=== PATIENT | female | born 1960 | race Caucasian/White ===

== ENCOUNTER 2019-05-08 09:42 | Inpatient (IN) ==
[2019-05-08] MEDS ORDERED: ONDANSETRON 4 MG/2 ML VIAL IV STA (09:58)
[2019-05-08] MEDS ORDERED: PANTOPRAZOLE 40 MG VIAL IV STA (09:58)
[2019-05-08 10:32] LABS: Basophils # 0.1 10*3/uL (0.0-0.2); Basophils % 0.7 % (0.0-0.8); Eosinophils # 0.2 10*3/uL (0.0-0.87); Eosinophils % 3.1 % (0.00-10.9); Hematocrit 25.1 VOL% (35.7-47.0); Hemoglobin 7.1 GM/DL (12.0-16.0); Immature Granulocytes % 0.3 %; Immature Granulocytes Absolute 0.02 #; Lymphocytes # 1.2 10*3/uL (1.4-4.0); Lymphocytes % 16.9 % (21.3-54.2); Mean Corpuscular HGB Conc 28.3 GM/DL (32-36); Mean Corpuscular Volume 75.1 FL (87-102); Mean Platelet Volume 10.8 FL (9.6-12.0); Monocytes % 11.2 % (1.7-12.7); Neutrophils % 67.8 % (38.7-73.9); Platelet Count 222 T/CUMM (130-400); Red Blood Count 3.34 MC/CUMM (3.8-5.5); Red Cell Distribution Width 17.3 % (9.3-17.3); White Blood Count 6.8 T/CUMM (4-12)
[2019-05-08 10:41] LABS: INR 1.2; PT Patient Result 13.5 SECS (9.6-12.2); Partial Thromboplastin Time 31.3 SECS (20.8-36.0)
[2019-05-08 10:52] LABS: Elliptocytes Few; Hypochromasia 1+; Platelet Estimate Adequate
[2019-05-08 11:52] LABS: Albumin 3.4 G/DL (3.4-5.0); Bilirubin,Total 0.5 MG/DL (0.2-1.0); Calcium 7.8 MG/DL (8.5-10.1); Osmolality,Calculated 290.1 MOS/KG (273-304); Total Protein 6.1 G/DL (6.4-8.3)
[2019-05-08] MEDS ORDERED: ONDANSETRON 4 MG/2 ML VIAL IV PRN (13:12)
[2019-05-08] MEDS ORDERED: ACETAMINOPHEN 325 MG TABLET PO PRN (13:12)
[2019-05-08 13:58] LABS: CKMB % 1.5 %
[2019-05-08 13:59] LABS: Troponin I 0.05 NG/ML (0.00-0.045)
[2019-05-08] MEDS ORDERED: SODIUM CHLORIDE 0.9% 1,000 ML IV PRN (14:45)
[2019-05-08 15:18] LABS: CKMB % 1.2 %; Troponin I 0.045 NG/ML (0.00-0.045)
[2019-05-08] MEDS ORDERED: ALBUTEROL/IPRATROPIUM 3 ML NEB RESP TX PRN (16:04)
[2019-05-08] MEDS: GABAPENTIN 600 MG TABLET PO SCH ×2 (16:42→20:20)
[2019-05-08] MEDS: SODIUM CHLORIDE 0.9% 1,000 ML IV SCH (16:43)
[2019-05-08] MEDS: DOCUSATE SODIUM 100 MG CAPSULE PO SCH (20:20)
[2019-05-08] MEDS: ATORVASTATIN 40 MG TABLET PO SCH (20:20)
[2019-05-08] MEDS: QUEtiapine 100 MG TABLET PO SCH (20:20)
[2019-05-09 01:36] LABS: Hematocrit 24.6 VOL% (35.7-47.0); Hemoglobin 7.5 GM/DL (12.0-16.0)
[2019-05-09 01:56] LABS: Albumin 3.1 G/DL (3.4-5.0); Bilirubin,Direct 0.22 MG/DL (0.0-0.20); Bilirubin,Indirect 0.6 MG/DL (0.0-1.0); Bilirubin,Total 0.8 MG/DL (0.2-1.0); Calcium 7.8 MG/DL (8.5-10.1); Osmolality,Calculated 287.1 MOS/KG (273-304); Total Protein 5.6 G/DL (6.4-8.3)
[2019-05-09] MEDS ORDERED: SODIUM CHLORIDE 0.9% 1,000 ML IV PRN (02:17)
[2019-05-09] MEDS ORDERED: LACTATED RINGERS 1,000 ML IV SCH (08:00)
[2019-05-09] MEDS ORDERED: propofoL 200 MG/20 ML VIAL IV ONE (10:00)
[2019-05-09] MEDS ORDERED: LIDOCAINE 2% 5 ML VIAL ONE (10:00)
[2019-05-09] MEDS: DOCUSATE SODIUM 100 MG CAPSULE PO SCH ×2 (11:04→21:03)
[2019-05-09] MEDS: GABAPENTIN 600 MG TABLET PO SCH ×3 (11:04→21:04)
[2019-05-09] MEDS: PANTOPRAZOLE 40 MG VIAL IV SCH ×2 (11:04→11:55)
[2019-05-09] MEDS: QUEtiapine 100 MG TABLET PO SCH (21:04)
[2019-05-09] MEDS: ATORVASTATIN 40 MG TABLET PO SCH (21:04)
[2019-05-10 04:36] LABS: Basophils % 0.8 % (0.0-0.8); Eosinophils # 0.2 10*3/uL (0.0-0.87); Hematocrit 32.5 VOL% (35.7-47.0); Hemoglobin 9.8 GM/DL (12.0-16.0); Immature Granulocytes % 0.3 %; Immature Granulocytes Absolute 0.01 #; Lymphocytes # 1.4 10*3/uL (1.4-4.0); Lymphocytes % 37.4 % (21.3-54.2); Mean Corpuscular HGB Conc 30.2 GM/DL (32-36); Mean Corpuscular Volume 82.1 FL (87-102); Mean Platelet Volume 11.7 FL (9.6-12.0); Monocytes % 13.5 % (1.7-12.7); Platelet Count 194 T/CUMM (130-400); Red Blood Count 3.96 MC/CUMM (3.8-5.5); Red Cell Distribution Width 18.6 % (9.3-17.3); White Blood Count 3.8 T/CUMM (4-12)
[2019-05-10] MEDS: SODIUM CHLORIDE 0.9% 1,000 ML IV SCH ×4 (07:53→14:32)
[2019-05-10] MEDS: PANTOPRAZOLE 40 MG VIAL IV SCH (09:40)
[2019-05-10] MEDS: DOCUSATE SODIUM 100 MG CAPSULE PO SCH (09:41)
[2019-05-10] MEDS: GABAPENTIN 600 MG TABLET PO SCH ×2 (09:41→15:29)
[2019-05-10 16:41] VITALS: BP 106/64
== END 2019-05-10 16:30 | disposition home or self-care (01) | DRG 378 ==
LOC: N.ED 09:42 → N.EDINP 09:42 → SUPCPDRO 10:49 → N.4E 12:29
PROVIDERS: ADMIT Family Medicine; ATTEND Family Medicine

== ENCOUNTER 2019-10-08 06:15 | Inpatient (IN) ==
[2019-10-08] MEDS ORDERED: ASPIRIN 325 MG TABLET PO STA (06:28)
[2019-10-08] MEDS ORDERED: DILTIAZEM 50 MG/10 ML VIAL IV STA (06:28)
[2019-10-08] MEDS ORDERED: dilTIAZem Drip 125 MG/125 ML PREMIX IV SCH (06:30)
[2019-10-08 07:11] LABS: Basophils # 0.1 10*3/uL (0.0-0.2); Basophils % 1.1 % (0.0-0.8); Eosinophils # 0.1 10*3/uL (0.0-0.87); Eosinophils % 1.9 % (0.00-10.9); Hematocrit 32.7 VOL% (35.7-47.0); Hemoglobin 9.7 GM/DL (12.0-16.0); Immature Granulocytes % 0.4 %; Immature Granulocytes Absolute 0.02 #; Lymphocytes # 1.7 10*3/uL (1.4-4.0); Mean Corpuscular HGB Conc 29.7 GM/DL (32-36); Mean Corpuscular Volume 88.4 FL (87-102); Mean Platelet Volume 11.3 FL (9.6-12.0); Monocytes % 12.6 % (1.7-12.7); Platelet Count 235 T/CUMM (130-400); Red Cell Distribution Width 14.9 % (9.3-17.3); White Blood Count 5.3 T/CUMM (4-12)
[2019-10-08 07:22] LABS: INR 1.1; PT Patient Result 11.6 SECS (9.8-11.9); Partial Thromboplastin Time 28.9 SECS (23.9-33.8)
[2019-10-08 07:31] LABS: Albumin 3.3 G/DL (3.4-5.0); Bilirubin,Total 0.4 MG/DL (0.2-1.0); Calcium 8.1 MG/DL (8.5-10.1); Osmolality,Calculated 285.8 MOS/KG (273-304); Total Protein 6.4 G/DL (6.4-8.3)
[2019-10-08] MEDS ORDERED: ONDANSETRON 4 MG/2 ML VIAL IV PRN (07:41)
[2019-10-08] MEDS ORDERED: CALCIUM CARBONATE CHEW 500 MG TABLET PO PRN (07:41)
[2019-10-08] MEDS ORDERED: diphenhydrAMINE CAP 25 MG CAPSULE PO PRN (07:41)
[2019-10-08] MEDS ORDERED: guaiFENesin/DM ER 600-30 MG TABLET PO PRN (07:41)
[2019-10-08] MEDS ORDERED: DOCUSATE SODIUM 100 MG CAPSULE PO PRN (07:41)
[2019-10-08] MEDS ORDERED: PROMETHAZINE 25 MG TABLET PO PRN (07:41)
[2019-10-08] MEDS ORDERED: hydrALAZINE 20 MG/1 ML VIAL IV PRN (07:41)
[2019-10-08] MEDS ORDERED: MAGNESIUM SULF RIDER 4 GM in PREMIX 1 EACH IV PRN (07:41)
[2019-10-08] MEDS ORDERED: ZALEPLON 5 MG CAPSULE PO PRN (07:41)
[2019-10-08] MEDS ORDERED: MAGNESIUM SULF RIDER 2 GM in PREMIX 1 EACH IV PRN (07:41)
[2019-10-08] MEDS ORDERED: ACETAMINOPHEN 325 MG TABLET PO PRN (07:41)
[2019-10-08] MEDS ORDERED: NICOTINE 21 MG/24 HR PATCH TRANSDERM PRN (07:41)
[2019-10-08] MEDS ORDERED: ALUMINUM/MAGNES/SIMETH MAX STR 30 ML UDCUP PO PRN (07:41)
[2019-10-08] MEDS ORDERED: POTASSIUM CHLORIDE 20 MEQ TABLET PO PRN (07:41)
[2019-10-08] MEDS ORDERED: DEXTROSE 50% 25 GM/50 ML VIAL IV STA (07:45)
[2019-10-08] MEDS ORDERED: DICLOFENAC 1% GEL 100 GM TUBE TOP PRN (07:52)
[2019-10-08] MEDS ORDERED: DEXTROSE 50% 25 GM/50 ML SYRINGE IV ONE (07:56)
[2019-10-08] MEDS ORDERED: ENOXAPARIN 100 MG/ML SYRINGE SUBCUT SCH (08:00)
[2019-10-08] MEDS: tiZANidine 4 MG TABLET PO SCH ×3 (09:07→20:38)
[2019-10-08] MEDS: PANTOPRAZOLE 40 MG TABLET PO SCH (09:07)
[2019-10-08] MEDS: GABAPENTIN 600 MG TABLET PO SCH ×2 (09:07→20:37)
[2019-10-08] MEDS ORDERED: ENOXAPARIN 80 MG/0.8 ML SYRINGE SUBCUT SCH (10:00)
[2019-10-08] MEDS ORDERED: ENOXAPARIN 80 MG/0.8 ML SYRINGE SUBCUT ONE (10:13)
[2019-10-08] MEDS ORDERED: FUROSEMIDE 20 MG/2 ML VIAL IV ONE (10:28)
[2019-10-08] MEDS: ASCORBIC ACID 500 MG TABLET PO SCH ×2 (11:42→20:36)
[2019-10-08] MEDS: DILTIAZEM 60 MG TABLET PO SCH ×4 (11:42→20:37)
[2019-10-08] MEDS ORDERED: METOPROLOL TARTRATE 25 MG TABLET PO ONE (13:47)
[2019-10-08] MEDS ORDERED: SODIUM CHLORIDE 0.45% 500 ML IV SCH (16:30)
[2019-10-08] MEDS ORDERED: RIVAROXABAN 20 MG TABLET PO SCH (17:00)
[2019-10-08] MEDS: ATORVASTATIN 40 MG TABLET PO SCH (20:36)
[2019-10-08] MEDS: QUEtiapine 100 MG TABLET PO SCH (20:38)
[2019-10-08] MEDS ORDERED: METOPROLOL TARTRATE 25 MG TABLET PO SCH ×2 (21:00)
[2019-10-09 05:50] LABS: Basophils # 0.1 10*3/uL (0.0-0.2); Basophils % 1.1 % (0.0-0.8); Eosinophils # 0.1 10*3/uL (0.0-0.87); Eosinophils % 2.3 % (0.00-10.9); Hematocrit 38.2 VOL% (35.7-47.0); Hemoglobin 11.6 GM/DL (12.0-16.0); Immature Granulocytes % 0.2 %; Immature Granulocytes Absolute 0.01 #; Lymphocytes # 1.7 10*3/uL (1.4-4.0); Mean Corpuscular HGB Conc 30.4 GM/DL (32-36); Mean Corpuscular Volume 87.2 FL (87-102); Mean Platelet Volume 11.5 FL (9.6-12.0); Monocytes % 8.9 % (1.7-12.7); Neutrophils % 48.5 % (38.7-73.9); Platelet Count 215 T/CUMM (130-400); Red Blood Count 4.38 MC/CUMM (3.8-5.5); Red Cell Distribution Width 14.9 % (9.3-17.3); White Blood Count 4.4 T/CUMM (4-12)
[2019-10-09 06:31] LABS: Apearance,Urine CLEAR (Clear); Bilirubin,Urine Negative (Negative); Blood, Urine Negative (Negative); Glucose,Urine (UA) Negative (Negative); Ketones,Urine Negative (Negative); Mucus,Urine Occasional /LPF (Occasional); Nitrite,Urine Negative (Negative); Protein,Urine Negative; RBC,Urine 1 /HPF (0-4); Urine Color Straw (Yellow); Urine Specific Gravity 1.008 (1.001-1.035); Urine Urobilinogen < 2.0 EU/DL (0.2-1.0); WBC,Urine 1 /HPF (0-6)
[2019-10-09 06:49] LABS: Calcium 8.6 MG/DL (8.5-10.1); Osmolality,Calculated 282.3 MOS/KG (273-304)
[2019-10-09] MEDS: PANTOPRAZOLE 40 MG TABLET PO SCH (09:18)
[2019-10-09] MEDS: GABAPENTIN 600 MG TABLET PO SCH ×2 (09:18→20:54)
[2019-10-09] MEDS: ASCORBIC ACID 500 MG TABLET PO SCH ×2 (09:18→20:54)
[2019-10-09] MEDS: tiZANidine 4 MG TABLET PO SCH ×3 (09:18→20:54)
[2019-10-09] MEDS: DILTIAZEM 60 MG TABLET PO SCH ×5 (09:23→20:54)
[2019-10-09] MEDS ORDERED: POTASSIUM CHLORIDE RIDER 10 MEQ in PREMIX 1 EACH IV PRN (12:19)
[2019-10-09] MEDS ORDERED: MAGNESIUM SULF RIDER 2 GM in PREMIX 1 EACH IV PRN (12:19)
[2019-10-09] MEDS: QUEtiapine 100 MG TABLET PO SCH (20:54)
[2019-10-09] MEDS: ATORVASTATIN 40 MG TABLET PO SCH (20:54)
[2019-10-09] MEDS ORDERED: DILTIAZEM CD 180 MG CAPSULE PO SCH (21:00)
[2019-10-10 07:50] LABS: Basophils # 0.1 10*3/uL (0.0-0.2); Basophils % 1.5 % (0.0-0.8); Eosinophils # 0.1 10*3/uL (0.0-0.87); Eosinophils % 2.5 % (0.00-10.9); Hematocrit 40.9 VOL% (35.7-47.0); Hemoglobin 12.3 GM/DL (12.0-16.0); Immature Granulocytes % 0.4 %; Immature Granulocytes Absolute 0.02 #; Lymphocytes # 1.7 10*3/uL (1.4-4.0); Lymphocytes % 31.9 % (21.3-54.2); Mean Corpuscular HGB Conc 30.1 GM/DL (32-36); Mean Corpuscular Volume 86.5 FL (87-102); Monocytes % 9.8 % (1.7-12.7); Neutrophils % 53.9 % (38.7-73.9); Platelet Count 275 T/CUMM (130-400); Red Blood Count 4.73 MC/CUMM (3.8-5.5); Red Cell Distribution Width 14.9 % (9.3-17.3); White Blood Count 5.3 T/CUMM (4-12)
[2019-10-10 08:08] LABS: Calcium 8.7 MG/DL (8.5-10.1); Osmolality,Calculated 281.3 MOS/KG (273-304)
[2019-10-10] MEDS ORDERED: DIGOXIN 0.5 MG/2 ML AMP IV ONE (08:26)
[2019-10-10] MEDS: DILTIAZEM 60 MG TABLET PO SCH ×4 (09:07→21:38)
[2019-10-10] MEDS ORDERED: HEPARIN/NACL 0.9% 2 UNITS/ML 1,500 ML IV ONE (10:21)
[2019-10-10] MEDS ORDERED: LIDOCAINE 1% 20 ML VIAL ONE (10:21)
[2019-10-10] MEDS ORDERED: MIDAZOLAM 2 MG/2 ML VIAL ONE (12:36)
[2019-10-10] MEDS ORDERED: ASPIRIN CHEW 81 MG TABLET PO ONE (12:37)
[2019-10-10] MEDS ORDERED: fentaNYL 100 MCG/2 ML VIAL ONE (12:37)
[2019-10-10] MEDS ORDERED: SODIUM CHLORIDE 0.9% 1,000 ML IV SCH (13:00)
[2019-10-10] MEDS ORDERED: ETOMIDATE 40 MG/20 ML VIAL IV ONE (13:25)
[2019-10-10] MEDS ORDERED: propofoL 200 MG/20 ML VIAL IV ONE (13:25)
[2019-10-10] MEDS: GABAPENTIN 600 MG TABLET PO SCH ×2 (14:53→21:39)
[2019-10-10] MEDS: ASCORBIC ACID 500 MG TABLET PO SCH ×2 (14:53→21:38)
[2019-10-10] MEDS: PANTOPRAZOLE 40 MG TABLET PO SCH (14:53)
[2019-10-10] MEDS: tiZANidine 4 MG TABLET PO SCH ×3 (14:53→21:39)
[2019-10-10] MEDS: ATORVASTATIN 40 MG TABLET PO SCH (21:38)
[2019-10-10] MEDS: QUEtiapine 100 MG TABLET PO SCH (21:39)
[2019-10-11 06:10] LABS: Basophils # 0.1 10*3/uL (0.0-0.2); Basophils % 0.9 % (0.0-0.8); Eosinophils # 0.1 10*3/uL (0.0-0.87); Eosinophils % 2.2 % (0.00-10.9); Hemoglobin 10.2 GM/DL (12.0-16.0); Immature Granulocytes % 0.3 %; Immature Granulocytes Absolute 0.02 #; Lymphocytes # 1.6 10*3/uL (1.4-4.0); Lymphocytes % 27.1 % (21.3-54.2); Mean Corpuscular Volume 87.6 FL (87-102); Mean Platelet Volume 11.4 FL (9.6-12.0); Monocytes % 7.5 % (1.7-12.7); Platelet Count 239 T/CUMM (130-400); Red Blood Count 3.88 MC/CUMM (3.8-5.5); Red Cell Distribution Width 15.1 % (9.3-17.3); White Blood Count 5.8 T/CUMM (4-12)
[2019-10-11 06:25] LABS: Calcium 8.3 MG/DL (8.5-10.1); Osmolality,Calculated 283.3 MOS/KG (273-304)
[2019-10-11] MEDS: ASCORBIC ACID 500 MG TABLET PO SCH (09:19)
[2019-10-11] MEDS: tiZANidine 4 MG TABLET PO SCH (09:19)
[2019-10-11] MEDS: DILTIAZEM 60 MG TABLET PO SCH (09:19)
[2019-10-11] MEDS: GABAPENTIN 600 MG TABLET PO SCH (09:19)
[2019-10-11] MEDS: PANTOPRAZOLE 40 MG TABLET PO SCH (09:19)
[2019-10-11] MEDS ORDERED: AMIODARONE 200 MG TABLET PO SCH (11:30)
[2019-10-11 12:23] VITALS: BP 95/54
[2019-10-11] MEDS ORDERED: RIVAROXABAN 20 MG TABLET PO SCH (17:00)
[2019-10-11] MEDS ORDERED: carvediloL 12.5 MG TABLET PO SCH (21:00)
== END 2019-10-11 14:05 | disposition home or self-care (01) | DRG 287 ==
LOC: N.EDINP 06:15 → N.ED 06:15 → N.TELEN 10:29
PROVIDERS: ADMIT Internal Medicine Cardiovascular Disease; ATTEND Internal Medicine Cardiovascular Disease
PROC: CLCCHCL (ICD-10-PCS; 2019-10-10 11:45)

== ENCOUNTER 2020-04-08 15:37 | Inpatient (IN) ==
[2020-04-08] MEDS ORDERED: DILTIAZEM 50 MG/10 ML VIAL IV STA (17:24)
[2020-04-08] MEDS ORDERED: FUROSEMIDE 100 MG/10 ML VIAL IV STA (17:24)
[2020-04-08 17:32] LABS: Basophils # 0.1 10*3/uL (0.0-0.2); Basophils % 0.9 % (0.0-0.8); Eosinophils # 0.1 10*3/uL (0.0-0.87); Eosinophils % 1.9 % (0.00-10.9); Hematocrit 30.8 VOL% (35.7-47.0); Hemoglobin 8.5 GM/DL (12.0-16.0); Immature Granulocytes % 0.5 %; Immature Granulocytes Absolute 0.03 #; Lymphocytes # 1.3 10*3/uL (1.4-4.0); Lymphocytes % 20.3 % (21.3-54.2); Mean Corpuscular HGB Conc 27.6 GM/DL (32-36); Mean Corpuscular Volume 82.1 FL (87-102); Mean Platelet Volume 10.7 FL (9.6-12.0); Monocytes % 8.7 % (1.7-12.7); Neutrophils % 67.7 % (38.7-73.9); Platelet Count 357 T/CUMM (130-400); Red Blood Count 3.75 MC/CUMM (3.8-5.5); Red Cell Distribution Width 18.4 % (9.3-17.3); White Blood Count 6.3 T/CUMM (4-12)
[2020-04-08 17:42] LABS: INR 1.3; PT Patient Result 13.5 SECS (9.8-11.9)
[2020-04-08 17:43] LABS: Albumin 2.9 G/DL (3.4-5.0); Bilirubin,Total 0.5 MG/DL (0.2-1.0); Calcium 7.8 MG/DL (8.5-10.1); Osmolality,Calculated 285.3 MOS/KG (273-304); Potassium 4.4 MMOL/L (3.5-5.1); Total Protein 6.3 G/DL (6.4-8.3)
[2020-04-08 17:53] LABS: Anisocytosis 1+; Elliptocytes Few; Hypochromasia Slight; Polychromasia Few; Schistocytes Few
[2020-04-08 17:54] LABS: Platelet Estimate Adequate
[2020-04-08] MEDS ORDERED: dilTIAZem INJ 125 MG in SODIUM CHLORIDE 0.9% 125 MG/100 ML BAG IV SCH (18:30)
[2020-04-09] MEDS ORDERED: MORPHINE 4 MG/1 ML VIAL IV PRN (08:11)
[2020-04-09] MEDS ORDERED: ACETAMINOPHEN 325 MG TABLET PO PRN (08:11)
[2020-04-09] MEDS ORDERED: ONDANSETRON 4 MG/2 ML VIAL IV PRN (08:11)
[2020-04-09] MEDS ORDERED: ALBUTEROL/IPRATROPIUM 3 ML NEB RESP TX PRN (08:11)
[2020-04-09 08:58] LABS: Troponin I 0.021 NG/ML (0.00-0.045)
[2020-04-09] MEDS ORDERED: INFLUENZA VIRUS VACCINE 0.5 ML SYRINGE IM ONE (09:00)
[2020-04-09] MEDS: FUROSEMIDE 40 MG/4 ML VIAL IV SCH ×2 (09:34→17:07)
[2020-04-09] MEDS: SODIUM CHLORIDE 0.9% 1,000 ML IV SCH ×2 (09:34→09:37)
[2020-04-09] MEDS: DOCUSATE SODIUM 100 MG CAPSULE PO SCH ×2 (09:35→20:43)
[2020-04-09] MEDS: PANTOPRAZOLE 40 MG TABLET PO SCH (09:35)
[2020-04-09] MEDS ORDERED: AMIODARONE INJ 150 MG in DEXTROSE 5% 100 ML IV ONE (10:19)
[2020-04-09] MEDS ORDERED: ALBUTEROL 2.5 MG/3 ML NEB RESP TX PRN (10:20)
[2020-04-09] MEDS ORDERED: tiZANidine 4 MG TABLET PO PRN (10:20)
[2020-04-09] MEDS ORDERED: AMIODARONE INJ 450 MG in DEXTROSE 5% 241 ML IV SCH ×2 (10:30→16:30)
[2020-04-09] MEDS: RIVAROXABAN 20 MG TABLET PO SCH (17:06)
[2020-04-09] MEDS: cefTRIAXone 1,000 MG in SYRINGE 1 EACH IV SCH (17:07)
[2020-04-09] MEDS: ASCORBIC ACID 500 MG TABLET PO SCH (20:44)
[2020-04-09] MEDS: carvediloL 12.5 MG TABLET PO SCH (20:44)
[2020-04-09] MEDS ORDERED: QUEtiapine 100 MG TABLET PO SCH (21:00)
[2020-04-09] MEDS ORDERED: ATORVASTATIN 40 MG TABLET PO SCH (21:00)
[2020-04-10 05:59] LABS: Calcium 8.2 MG/DL (8.5-10.1); Osmolality,Calculated 277.7 MOS/KG (273-304); Potassium 4.3 MMOL/L (3.5-5.1)
[2020-04-10 06:26] LABS: Albumin 2.6 G/DL (3.4-5.0); Calcium 8.4 MG/DL (8.5-10.1); Osmolality,Calculated 279.5 MOS/KG (273-304); Potassium 4.3 MMOL/L (3.5-5.1); Risk Ratio 2.38; Total Protein 6.5 G/DL (6.4-8.3); VLDL CHOLESTEROL 9.6 MG/DL
[2020-04-10 07:12] LABS: Basophils # 0.1 10*3/uL (0.0-0.2); Basophils % 0.8 % (0.0-0.8); Eosinophils # 0.1 10*3/uL (0.0-0.87); Eosinophils % 2.3 % (0.00-10.9); Hematocrit 31.9 VOL% (35.7-47.0); Immature Granulocytes % 0.5 %; Immature Granulocytes Absolute 0.03 #; Lymphocytes # 1.2 10*3/uL (1.4-4.0); Lymphocytes % 19.6 % (21.3-54.2); Mean Corpuscular HGB Conc 28.2 GM/DL (32-36); Mean Corpuscular Volume 80.4 FL (87-102); Mean Platelet Volume 10.5 FL (9.6-12.0); Monocytes % 10.8 % (1.7-12.7); Platelet Count 337 T/CUMM (130-400); Red Blood Count 3.97 MC/CUMM (3.8-5.5); Red Cell Distribution Width 18.3 % (9.3-17.3); White Blood Count 6.2 T/CUMM (4-12)
[2020-04-10 07:19] LABS: Basophils # 0.1 10*3/uL (0.0-0.2); Basophils % 1.4 % (0.0-0.8); Eosinophils # 0.1 10*3/uL (0.0-0.87); Eosinophils % 2.2 % (0.00-10.9); Hematocrit 32.1 VOL% (35.7-47.0); Hemoglobin 9.1 GM/DL (12.0-16.0); Immature Granulocytes % 0.5 %; Immature Granulocytes Absolute 0.03 #; Lymphocytes # 1.4 10*3/uL (1.4-4.0); Mean Corpuscular HGB Conc 28.3 GM/DL (32-36); Mean Corpuscular Volume 80.3 FL (87-102); Mean Platelet Volume 10.9 FL (9.6-12.0); Monocytes % 10.7 % (1.7-12.7); Neutrophils % 61.2 % (38.7-73.9); Platelet Count 329 T/CUMM (130-400); Red Cell Distribution Width 18.2 % (9.3-17.3); White Blood Count 5.8 T/CUMM (4-12)
[2020-04-10 07:26] LABS: Anisocytosis 2+; Platelet Estimate Normal
[2020-04-10 07:27] LABS: Ovalocytes 1+; Poikilocytosis 1+; Polychromasia Slight; Target Cells Few
[2020-04-10] MEDS ORDERED: CETIRIZINE 10 MG TABLET PO SCH (09:00)
[2020-04-10] MEDS ORDERED: propofoL 200 MG/20 ML VIAL IV ONE (12:09)
[2020-04-10] MEDS ORDERED: LIDOCAINE 2% 5 ML VIAL ONE (12:09)
[2020-04-10] MEDS ORDERED: AMIODARONE 200 MG TABLET PO SCH (12:46)
[2020-04-10] MEDS: DOCUSATE SODIUM 100 MG CAPSULE PO SCH (14:07)
[2020-04-10] MEDS: PANTOPRAZOLE 40 MG TABLET PO SCH (14:08)
[2020-04-10] MEDS: ASCORBIC ACID 500 MG TABLET PO SCH (14:08)
[2020-04-10] MEDS: carvediloL 12.5 MG TABLET PO SCH (14:08)
[2020-04-10] MEDS: FUROSEMIDE 40 MG/4 ML VIAL IV SCH ×3 (14:08→15:59)
[2020-04-10 17:31] VITALS: BP 97/60
[2020-04-10] MEDS: cefTRIAXone 1,000 MG in SYRINGE 1 EACH IV SCH (17:31)
[2020-04-10] MEDS: RIVAROXABAN 20 MG TABLET PO SCH (17:35)
== END 2020-04-10 18:00 | disposition home or self-care (01) | DRG 291 ==
LOC: N.ED 15:37 → N.EDINP 18:44 → N.TELES 20:33
PROVIDERS: ADMIT Family Medicine; ATTEND Family Medicine

== ENCOUNTER 2020-07-02 14:46 | Observation (INO) ==
[2020-07-02] MEDS ORDERED: ONDANSETRON 4 MG/2 ML VIAL IV PRN (16:43)
[2020-07-02] MEDS ORDERED: MAGNESIUM SULF RIDER 4 GM in PREMIX 1 EACH IV PRN (16:43)
[2020-07-02] MEDS ORDERED: ACETAMINOPHEN 325 MG TABLET PO PRN (16:43)
[2020-07-02] MEDS ORDERED: MAGNESIUM SULF RIDER 2 GM in PREMIX 1 EACH IV PRN (16:43)
[2020-07-02 18:07] LABS: Basophils # 0.1 10*3/uL (0.0-0.2); Basophils % 0.8 % (0.0-0.8); Eosinophils # 0.1 10*3/uL (0.0-0.87); Eosinophils % 1.2 % (0.00-10.9); Hemoglobin 7.8 GM/DL (12.0-16.0); Immature Granulocytes % 0.6 %; Immature Granulocytes Absolute 0.04 #; Lymphocytes # 1.3 10*3/uL (1.4-4.0); Mean Corpuscular HGB Conc 26.4 GM/DL (32-36); Mean Corpuscular Volume 81.3 FL (87-102); Mean Platelet Volume 10.1 FL (9.6-12.0); Monocytes % 7.2 % (1.7-12.7); Neutrophils % 72.2 % (38.7-73.9); Platelet Count 465 T/CUMM (130-400); Red Blood Count 3.64 MC/CUMM (3.8-5.5); Red Cell Distribution Width 18.6 % (9.3-17.3); White Blood Count 7.2 T/CUMM (4-12)
[2020-07-02 18:08] LABS: Hematocrit 29.6 VOL% (35.7-47.0)
[2020-07-02] MEDS ORDERED: ALBUTEROL 2.5 MG/3 ML NEB RESP TX PRN (19:00)
[2020-07-02] MEDS ORDERED: SODIUM CHLORIDE 0.9% 1,000 ML IV PRN (19:05)
[2020-07-02] MEDS ORDERED: QUEtiapine 100 MG TABLET PO SCH (21:00)
[2020-07-02] MEDS ORDERED: ATORVASTATIN 40 MG TABLET PO SCH (21:00)
[2020-07-02] MEDS: FUROSEMIDE 40 MG/4 ML VIAL IV SCH (21:33)
[2020-07-02] MEDS: DOCUSATE SODIUM 100 MG CAPSULE PO SCH (21:33)
[2020-07-02] MEDS: carvediloL 12.5 MG TABLET PO SCH (21:33)
[2020-07-02] MEDS: ASCORBIC ACID 500 MG TABLET PO SCH (21:33)
[2020-07-02] MEDS: GABAPENTIN 600 MG TABLET PO SCH (21:34)
[2020-07-03 05:17] LABS: Bacteria,Urine Moderate /HPF (Few); Bilirubin,Urine Negative (Negative); Blood, Urine Negative (Negative); Glucose,Urine (UA) Negative (Negative); Ketones,Urine Negative (Negative); Nitrite,Urine Negative (Negative); Protein,Urine Negative; RBC,Urine 2 /HPF (0-4); Squamous Epithelial Cell,Urine Few /HPF (0-10); Urine Appearance Slightly Hazy (Clear); Urine Color Straw (Yellow); Urine Specific Gravity 1.008 (1.001-1.035); Urine Urobilinogen < 2.0 EU/DL (0.2-1.0); WBC,Urine 34 /HPF (0-6)
[2020-07-03 08:21] LABS: Basophils # 0.1 10*3/uL (0.0-0.2); Basophils % 0.8 % (0.0-0.8); Eosinophils # 0.1 10*3/uL (0.0-0.87); Eosinophils % 1.4 % (0.00-10.9); Hematocrit 34.9 VOL% (35.7-47.0); Hemoglobin 9.7 GM/DL (12.0-16.0); Immature Granulocytes % 0.5 %; Immature Granulocytes Absolute 0.03 #; Lymphocytes # 1.4 10*3/uL (1.4-4.0); Lymphocytes % 23.3 % (21.3-54.2); Mean Corpuscular HGB Conc 27.8 GM/DL (32-36); Mean Corpuscular Volume 79.9 FL (87-102); Mean Platelet Volume 10.2 FL (9.6-12.0); Monocytes % 7.8 % (1.7-12.7); Neutrophils % 66.2 % (38.7-73.9); Platelet Count 433 T/CUMM (130-400); Red Blood Count 4.37 MC/CUMM (3.8-5.5); Red Cell Distribution Width 18.6 % (9.3-17.3); White Blood Count 5.9 T/CUMM (4-12)
[2020-07-03 08:42] LABS: Hypochromasia 1+; Microcytosis 1+; Ovalocytes Slight
[2020-07-03 08:50] LABS: Albumin 2.8 G/DL (3.4-5.0); Bilirubin,Total 1.3 MG/DL (0.2-1.0); Calcium 8.3 MG/DL (8.5-10.1); Osmolality,Calculated 282.3 MOS/KG (273-304); Potassium 3.7 MMOL/L (3.5-5.1); Total Protein 6.4 G/DL (6.4-8.2)
[2020-07-03] MEDS: FUROSEMIDE 40 MG/4 ML VIAL IV SCH (08:58)
[2020-07-03] MEDS: DOCUSATE SODIUM 100 MG CAPSULE PO SCH (08:59)
[2020-07-03] MEDS: carvediloL 12.5 MG TABLET PO SCH (09:00)
[2020-07-03] MEDS: GABAPENTIN 600 MG TABLET PO SCH (09:00)
[2020-07-03] MEDS ORDERED: PANTOPRAZOLE 40 MG TABLET PO SCH (09:00)
[2020-07-03] MEDS: ASCORBIC ACID 500 MG TABLET PO SCH (09:00)
[2020-07-03 11:43] VITALS: BP 116/59
[2020-07-03] MEDS ORDERED: carvediloL 6.25 MG TABLET PO SCH (21:00)
== END 2020-07-03 17:09 | disposition home or self-care (01) ==
LOC: N.5E
PROVIDERS: ADMIT Family Medicine; ATTEND Family Medicine

== ENCOUNTER 2021-04-26 08:07 | Inpatient (IN) ==
[2021-04-26 11:45] LABS: PT Patient Result 11.5 SECS (10.5-12.0); Partial Thromboplastin Time 20.3 SECS (23.8-32.1)
[2021-04-26 12:02] LABS: Albumin 3.7 G/DL (3.4-5.0); Bilirubin,Total 0.6 MG/DL (0.20-1.00); Calcium 9.1 MG/DL (8.5-10.1); Osmolality,Calculated 280.1 MOS/KG (273-304); Potassium 3.6 MMOL/L (3.5-5.1); Total Protein 7.2 G/DL (6.4-8.2)
[2021-04-26 13:27] LABS: Basophils # 0.1 10*3/uL (0.0-0.2); Basophils % 0.8 % (0.0-0.8); Eosinophils # 0.2 10*3/uL (0.0-0.87); Eosinophils % 2.4 % (0.00-10.9); Hematocrit 26.2 VOL% (35.7-47.0); Hemoglobin 8.1 GM/DL (12.0-16.0); Immature Granulocytes % 0.5 %; Immature Granulocytes Absolute 0.03 #; Lymphocytes # 1.4 10*3/uL (1.4-4.0); Lymphocytes % 21.5 % (21.3-54.2); Mean Corpuscular HGB Conc 30.9 GM/DL (32-36); Mean Corpuscular Volume 83.7 FL (87-102); Mean Platelet Volume 10.4 FL (9.6-12.0); Neutrophils % 64.8 % (38.7-73.9); Platelet Count 257 T/CUMM (130-400); Red Blood Count 3.13 MC/CUMM (3.8-5.5); Red Cell Distribution Width 15.9 % (9.3-17.3); White Blood Count 6.3 T/CUMM (4-12)
[2021-04-26] MEDS ORDERED: SODIUM CHLORIDE 0.9% 1,000 ML IV STA (13:50)
[2021-04-26] MEDS ORDERED: ONDANSETRON 4 MG/2 ML VIAL IV PRN (19:03)
[2021-04-26] MEDS ORDERED: ACETAMINOPHEN 325 MG TABLET PO PRN (19:03)
[2021-04-26] MEDS: SODIUM CHLORIDE 0.9% 1,000 ML IV SCH (19:14)
[2021-04-26 19:46] LABS: Hematocrit 20.6 VOL% (35.7-47.0)
[2021-04-26 19:50] LABS: Hemoglobin 6.2 GM/DL (12.0-16.0)
[2021-04-26] MEDS ORDERED: SODIUM CHLORIDE 0.9% 1,000 ML IV PRN (19:58)
[2021-04-26] MEDS: carvediloL 12.5 MG TABLET PO SCH (21:06)
[2021-04-26] MEDS: QUEtiapine 100 MG TABLET PO SCH (21:20)
[2021-04-26] MEDS: DOCUSATE SODIUM 100 MG CAPSULE PO SCH (21:20)
[2021-04-26] MEDS: ATORVASTATIN 40 MG TABLET PO SCH (23:51)
[2021-04-27 05:00] LABS: Basophils % 0.7 % (0.0-0.8); Eosinophils # 0.2 10*3/uL (0.0-0.87); Eosinophils % 2.8 % (0.00-10.9); Hemoglobin 9.3 GM/DL (12.0-16.0); Immature Granulocytes % 0.2 %; Immature Granulocytes Absolute 0.01 #; Lymphocytes # 1.8 10*3/uL (1.4-4.0); Lymphocytes % 30.9 % (21.3-54.2); Mean Corpuscular Volume 85.5 FL (87-102); Mean Platelet Volume 10.6 FL (9.6-12.0); Monocytes % 9.3 % (1.7-12.7); Neutrophils % 56.1 % (38.7-73.9); Platelet Count 242 T/CUMM (130-400); Red Blood Count 3.51 MC/CUMM (3.8-5.5); Red Cell Distribution Width 15.2 % (9.3-17.3); White Blood Count 5.8 T/CUMM (4-12)
[2021-04-27 05:23] LABS: Alanine Aminotransferase 18 U/L (13-56); Albumin 2.9 G/DL (3.4-5.0); Alkaline Phosphatase 76 U/L (45-117); Aspartate Amino Transferase 22 U/L (0-37); Bilirubin,Total < 0.39 MG/DL (0.20-1.00); Blood Urea Nitrogen 41 MG/DL (7-18); Calcium 7.7 MG/DL (8.5-10.1); Carbon Dioxide 23 MMOL/L (21-32); Estimated Glom Filtration Rate 60 ML/MIN; Glucose 97 MG/DL (74-106); Osmolality,Calculated 284.7 MOS/KG (273-304); Potassium 3.5 MMOL/L (3.5-5.1); Sodium 138 MMOL/L (136-145); Total Protein 5.9 G/DL (6.4-8.2)
[2021-04-27] MEDS: SODIUM CHLORIDE 0.9% 1,000 ML IV SCH ×3 (06:11→21:21)
[2021-04-27] MEDS: carvediloL 12.5 MG TABLET PO SCH ×2 (08:19→16:33)
[2021-04-27] MEDS: DOCUSATE SODIUM 100 MG CAPSULE PO SCH ×2 (08:55→21:06)
[2021-04-27] MEDS: CETIRIZINE 10 MG TABLET PO SCH (08:55)
[2021-04-27] MEDS ORDERED: PANTOPRAZOLE 40 MG TABLET PO SCH (09:00)
[2021-04-27] MEDS: traMADol 50 MG TABLET PO PRN (10:17)
[2021-04-27] MEDS ORDERED: INFLUENZA VIRUS VACCINE 0.5 ML SYRINGE IM ONE (14:06)
[2021-04-27 14:35] LABS: Hematocrit 27.6 VOL% (35.7-47.0); Hemoglobin 8.6 GM/DL (12.0-16.0)
[2021-04-27] MEDS: PANTOPRAZOLE 40 MG VIAL IV SCH (21:06)
[2021-04-27] MEDS: QUEtiapine 100 MG TABLET PO SCH (21:06)
[2021-04-27] MEDS: ATORVASTATIN 40 MG TABLET PO SCH (21:07)
[2021-04-28] MEDS: SODIUM CHLORIDE 0.9% 1,000 ML IV SCH ×3 (03:11→22:37)
[2021-04-28 04:39] LABS: Basophils # 0.1 10*3/uL (0.0-0.2); Basophils % 1.2 % (0.0-0.8); Eosinophils # 0.1 10*3/uL (0.0-0.87); Eosinophils % 2.9 % (0.00-10.9); Hematocrit 24.9 VOL% (35.7-47.0); Hemoglobin 7.6 GM/DL (12.0-16.0); Immature Granulocytes % 0.5 %; Immature Granulocytes Absolute 0.02 #; Lymphocytes # 1.4 10*3/uL (1.4-4.0); Mean Corpuscular HGB Conc 30.5 GM/DL (32-36); Mean Corpuscular Volume 86.5 FL (87-102); Mean Platelet Volume 10.5 FL (9.6-12.0); Monocytes % 10.5 % (1.7-12.7); Neutrophils % 49.9 % (38.7-73.9); Platelet Count 197 T/CUMM (130-400); Red Blood Count 2.88 MC/CUMM (3.8-5.5); Red Cell Distribution Width 15.5 % (9.3-17.3); White Blood Count 4.1 T/CUMM (4-12)
[2021-04-28 05:02] LABS: Calcium 7.6 MG/DL (8.5-10.1); Potassium 3.3 MMOL/L (3.5-5.1)
[2021-04-28 05:03] LABS: Alanine Aminotransferase 14 U/L (13-56); Albumin 2.2 G/DL (3.4-5.0); Alkaline Phosphatase 65 U/L (45-117); Aspartate Amino Transferase 17 U/L (0-37); Bilirubin,Total < 0.39 MG/DL (0.20-1.00); Blood Urea Nitrogen 18 MG/DL (7-18); Calcium 7.7 MG/DL (8.5-10.1); Carbon Dioxide 22 MMOL/L (21-32); Estimated Glom Filtration Rate 93 ML/MIN; Glucose 83 MG/DL (74-106); Osmolality,Calculated 281.3 MOS/KG (273-304); Potassium 3.4 MMOL/L (3.5-5.1); Sodium 141 MMOL/L (136-145); Total Protein 4.8 G/DL (6.4-8.2)
[2021-04-28 09:01] LABS: Hemoglobin 7.9 GM/DL (12.0-16.0)
[2021-04-28] MEDS: CETIRIZINE 10 MG TABLET PO SCH (09:15)
[2021-04-28] MEDS: PANTOPRAZOLE 40 MG VIAL IV SCH ×2 (09:15→21:03)
[2021-04-28] MEDS: carvediloL 12.5 MG TABLET PO SCH (09:15)
[2021-04-28] MEDS: DOCUSATE SODIUM 100 MG CAPSULE PO SCH ×2 (09:15→21:03)
[2021-04-28] MEDS: AMIODARONE 200 MG TABLET PO SCH (09:15)
[2021-04-28] MEDS ORDERED: POTASSIUM CHLORIDE 20 MEQ TABLET PO ONE (11:09)
[2021-04-28] MEDS ORDERED: MAGNESIUM SULF RIDER 2 GM/50 ML PREMIX IV ONE (11:10)
[2021-04-28] MEDS: carvediloL 6.25 MG TABLET PO SCH (21:03)
[2021-04-28] MEDS: QUEtiapine 100 MG TABLET PO SCH (21:03)
[2021-04-28] MEDS: traMADol 50 MG TABLET PO PRN (21:03)
[2021-04-28] MEDS: ATORVASTATIN 40 MG TABLET PO SCH (21:03)
[2021-04-28] MEDS: ASCORBIC ACID 500 MG TABLET PO SCH (21:03)
[2021-04-29] MEDS: SODIUM CHLORIDE 0.9% 1,000 ML IV SCH (03:57)
[2021-04-29] MEDS: traMADol 50 MG TABLET PO PRN (04:42)
[2021-04-29 05:13] LABS: Basophils % 0.6 % (0.0-0.8); Eosinophils # 0.1 10*3/uL (0.0-0.87); Eosinophils % 3.7 % (0.00-10.9); Hematocrit 24.9 VOL% (35.7-47.0); Hemoglobin 7.4 GM/DL (12.0-16.0); Immature Granulocytes % 0.3 %; Immature Granulocytes Absolute 0.01 #; Lymphocytes # 1.2 10*3/uL (1.4-4.0); Lymphocytes % 36.7 % (21.3-54.2); Mean Corpuscular HGB Conc 29.7 GM/DL (32-36); Mean Corpuscular Volume 88.9 FL (87-102); Mean Platelet Volume 10.6 FL (9.6-12.0); Neutrophils % 47.7 % (38.7-73.9); Platelet Count 216 T/CUMM (130-400); Red Cell Distribution Width 15.8 % (9.3-17.3); White Blood Count 3.3 T/CUMM (4-12)
[2021-04-29 05:45] LABS: Albumin 2.3 G/DL (3.4-5.0); Bilirubin,Total 0.8 MG/DL (0.20-1.00); Calcium 7.6 MG/DL (8.5-10.1); Eosinophils 2 % (0-10); Lymphocytes 42 % (20-55); Osmolality,Calculated 285.7 MOS/KG (273-304); Potassium 3.8 MMOL/L (3.5-5.1); Segmented Neutrophils 49 % (50-85); Total Cells Counted 100; Total Protein 4.9 G/DL (6.4-8.2)
[2021-04-29 05:46] LABS: Hypochromia 1+; Microcytosis 1+; Platelet Estimate Adequate
[2021-04-29 07:51] VITALS: BP 127/77
[2021-04-29] MEDS: AMIODARONE 200 MG TABLET PO SCH (09:25)
[2021-04-29] MEDS: CETIRIZINE 10 MG TABLET PO SCH (09:25)
[2021-04-29] MEDS: DOCUSATE SODIUM 100 MG CAPSULE PO SCH (09:25)
[2021-04-29] MEDS: PANTOPRAZOLE 40 MG VIAL IV SCH (09:25)
[2021-04-29] MEDS: ASCORBIC ACID 500 MG TABLET PO SCH (09:25)
[2021-04-29] MEDS: carvediloL 6.25 MG TABLET PO SCH (09:25)
== END 2021-04-29 10:12 | disposition home or self-care (01) | DRG 813 ==
LOC: N.ED 08:07 → N.EDINP 08:07 → N.TELEN 04-27 13:10
PROVIDERS: ADMIT Family Medicine; ATTEND Family Medicine

== ENCOUNTER 2021-10-30 18:02 | Inpatient (IN) ==
[2021-10-30 20:14] LABS: ABG Base Excess -1.2 MMOL/L (-2.5-2.5); ABG HCO3 23.2 MMOL/L (20-26); ABG PCO2 41.9 MM HG (35-48); ABG PH 7.367 (7.35-7.45); ABG PO2 53.5 MM HG (80-95); ABG TCO2 22.6 MMOL/L (23-27)
[2021-10-30 20:43] LABS: PT Patient Result 11.5 SECS (10.1-12.1)
[2021-10-30 20:51] LABS: Alanine Aminotransferase 14 U/L (13-56); Alkaline Phosphatase 92 U/L (45-117); Aspartate Amino Transferase 17 U/L (0-37); Basophils # 0.1 10*3/uL (0.0-0.2); Basophils % 1.2 % (0.0-0.8); Bilirubin,Total < 0.39 MG/DL (0.20-1.00); Blood Urea Nitrogen 37 MG/DL (7-18); Calcium 8.4 MG/DL (8.5-10.1); Carbon Dioxide 24 MMOL/L (21-32); Chloride 110 MMOL/L (98-107); Eosinophils # 0.1 10*3/uL (0.0-0.87); Eosinophils % 1.4 % (0.00-10.9); Glucose 103 MG/DL (74-106); Hematocrit 28.3 VOL% (35.7-47.0); Hemoglobin 7.5 GM/DL (12.0-16.0); Immature Granulocytes % 0.8 %; Immature Granulocytes Absolute 0.06 #; Lymphocytes # 1.1 10*3/uL (1.4-4.0); Lymphocytes % 15.4 % (21.3-54.2); Mean Corpuscular HGB Conc 26.5 GM/DL (32-36); Mean Corpuscular Volume 71.3 FL (87-102); Mean Platelet Volume 10.4 FL (9.6-12.0); Monocytes # 0.6 10*3/uL (0.11-0.8); Monocytes % 8.7 % (1.7-12.7); NRBC # 0.05 10*3/uL; Neutrophils % 72.5 % (38.7-73.9); Osmolality,Calculated 287.4 MOS/KG (273-304); Platelet Count 298 T/CUMM (130-400); Potassium 3.6 MMOL/L (3.5-5.1); Red Blood Count 3.97 MC/CUMM (3.8-5.5); Red Cell Distribution Width 21.3 % (9.3-17.3); Sodium 140 MMOL/L (136-145); Total Protein 6.8 G/DL (6.4-8.2); White Blood Count 7.3 T/CUMM (4-12)
[2021-10-30 21:07] LABS: Platelet Estimate Adequate
[2021-10-30 21:08] LABS: Anisocytosis 3+; Hypochromia 3+; Microcytosis 2+; Poikilocytosis 1+
[2021-10-30 21:09] LABS: Ovalocytes 1+; Polychromasia 1+
[2021-10-30] MEDS ORDERED: LEVOFLOXACIN INJ 750 MG/150 ML PREMIX IV STA (21:10)
[2021-10-30] MEDS ORDERED: ALBUTEROL/IPRATROPIUM 3 ML NEB RESP TX PRN (21:12)
[2021-10-30] MEDS ORDERED: ONDANSETRON 4 MG/2 ML VIAL IV PRN (21:12)
[2021-10-30] MEDS ORDERED: ACETAMINOPHEN 325 MG TABLET PO PRN (21:12)
[2021-10-30] MEDS ORDERED: DILTIAZEM 25 MG/5 ML VIAL IV STA (21:13)
[2021-10-30] MEDS ORDERED: AMIODARONE INJ 150 MG in DEXTROSE 5% 100 ML IV ONE (21:51)
[2021-10-30] MEDS: SODIUM CHLORIDE 0.9% 1,000 ML IV SCH (23:49)
[2021-10-31] MEDS: LEVOFLOXACIN INJ 750 MG/150 ML PREMIX IV SCH ×2 (03:11→23:25)
[2021-10-31 05:41] LABS: Basophils # 0.1 10*3/uL (0.0-0.2); Basophils % 1.2 % (0.0-0.8); Eosinophils # 0.1 10*3/uL (0.0-0.87); Eosinophils % 1.4 % (0.00-10.9); Hematocrit 28.5 VOL% (35.7-47.0); Immature Granulocytes % 0.8 %; Immature Granulocytes Absolute 0.06 #; Lymphocytes # 1.1 10*3/uL (1.4-4.0); Lymphocytes % 15.7 % (21.3-54.2); Mean Corpuscular Volume 72.3 FL (87-102); Mean Platelet Volume 10.9 FL (9.6-12.0); Monocytes # 0.9 10*3/uL (0.11-0.8); Monocytes % 11.7 % (1.7-12.7); NRBC # 0.03 10*3/uL; Neutrophils % 69.2 % (38.7-73.9); Platelet Count 298 T/CUMM (130-400); Red Blood Count 3.94 MC/CUMM (3.8-5.5); Red Cell Distribution Width 20.9 % (9.3-17.3); White Blood Count 7.2 T/CUMM (4-12)
[2021-10-31 05:49] LABS: Hemoglobin 7.4 GM/DL (12.0-16.0)
[2021-10-31 06:12] LABS: Albumin 2.9 G/DL (3.4-5.0); Bilirubin,Total 0.5 MG/DL (0.20-1.00); Osmolality,Calculated 285.3 MOS/KG (273-304); Potassium 3.9 MMOL/L (3.5-5.1); Total Protein 6.6 G/DL (6.4-8.2)
[2021-10-31] MEDS ORDERED: DILTIAZEM 25 MG/5 ML VIAL IV ONE (07:28)
[2021-10-31] MEDS: SODIUM CHLORIDE 0.9% 1,000 ML IV SCH (08:00)
[2021-10-31] MEDS ORDERED: DILTIAZEM CD 120 MG CAPSULE PO SCH (09:00)
[2021-10-31] MEDS ORDERED: CLOPIDOGREL 75 MG TABLET PO SCH (09:00)
[2021-10-31] MEDS ORDERED: AMIODARONE 200 MG TABLET PO SCH (09:00)
[2021-10-31] MEDS: AMIODARONE 200 MG TABLET PO SCH ×2 (09:38→23:25)
[2021-10-31] MEDS: carvediloL 12.5 MG TABLET PO SCH ×2 (09:38→23:24)
[2021-10-31] MEDS: PREGABALIN 75 MG CAPSULE PO SCH ×2 (09:38→23:24)
[2021-10-31] MEDS: hydroCHLOROthiazide 12.5 MG CAPSULE PO SCH (09:38)
[2021-10-31] MEDS: SERTRALINE 25 MG TABLET PO SCH (09:38)
[2021-10-31] MEDS: methylPREDNISolone SOD SUC 40 MG/1 ML VIAL IV SCH ×2 (09:39→23:24)
[2021-10-31] MEDS: PANTOPRAZOLE 40 MG TABLET PO SCH (09:39)
[2021-10-31] MEDS: FUROSEMIDE 20 MG TABLET PO SCH (09:39)
[2021-10-31] MEDS: CYCLOBENZAPRINE 10 MG TABLET PO SCH ×2 (10:07→23:24)
[2021-10-31] MEDS: DILTIAZEM CD 120 MG CAPSULE PO SCH ×2 (10:07→21:00)
[2021-10-31] MEDS: GABAPENTIN 600 MG TABLET PO SCH ×2 (10:07→15:30)
[2021-10-31] MEDS: DILTIAZEM INJ 100 MG in SODIUM CHLORIDE 0.9% 100 ML IV SCH ×2 (10:18→18:30)
[2021-10-31] MEDS: ATORVASTATIN 40 MG TABLET PO SCH (23:24)
[2021-10-31] MEDS: QUEtiapine 100 MG TABLET PO SCH (23:25)
[2021-11-01] MEDS: SODIUM CHLORIDE 0.9% 1,000 ML IV SCH (03:42)
[2021-11-01] MEDS: DILTIAZEM INJ 100 MG in SODIUM CHLORIDE 0.9% 100 ML IV SCH ×2 (03:43→21:34)
[2021-11-01 05:45] LABS: Basophils % 0.1 % (0.0-0.8); Hematocrit 26.7 VOL% (35.7-47.0); Immature Granulocytes Absolute 0.07 #; Lymphocytes # 0.5 10*3/uL (1.4-4.0); Mean Corpuscular HGB Conc 26.2 GM/DL (32-36); Mean Corpuscular Volume 72.6 FL (87-102); Mean Platelet Volume 10.9 FL (9.6-12.0); Monocytes # 0.2 10*3/uL (0.11-0.8); Monocytes % 3.4 % (1.7-12.7); Neutrophils % 88.5 % (38.7-73.9); Platelet Count 274 T/CUMM (130-400); Red Blood Count 3.68 MC/CUMM (3.8-5.5); Red Cell Distribution Width 21.3 % (9.3-17.3); White Blood Count 6.8 T/CUMM (4-12)
[2021-11-01 06:03] LABS: Albumin 2.7 G/DL (3.4-5.0); Bilirubin,Total 0.4 MG/DL (0.20-1.00); Calcium 8.1 MG/DL (8.5-10.1); Osmolality,Calculated 291.8 MOS/KG (273-304); Potassium 4.6 MMOL/L (3.5-5.1); Total Protein 5.8 G/DL (6.4-8.2)
[2021-11-01] MEDS: PANTOPRAZOLE 40 MG TABLET PO SCH (10:22)
[2021-11-01] MEDS: methylPREDNISolone SOD SUC 40 MG/1 ML VIAL IV SCH ×2 (10:22→21:15)
[2021-11-01] MEDS: hydroCHLOROthiazide 12.5 MG CAPSULE PO SCH (10:22)
[2021-11-01] MEDS: CYCLOBENZAPRINE 10 MG TABLET PO SCH ×2 (10:22→21:15)
[2021-11-01] MEDS: AMIODARONE 200 MG TABLET PO SCH ×2 (10:23→21:15)
[2021-11-01] MEDS: SERTRALINE 25 MG TABLET PO SCH (10:23)
[2021-11-01] MEDS: FUROSEMIDE 20 MG TABLET PO SCH (10:23)
[2021-11-01] MEDS: carvediloL 12.5 MG TABLET PO SCH ×2 (10:23→21:14)
[2021-11-01] MEDS: PREGABALIN 75 MG CAPSULE PO SCH ×2 (10:23→21:14)
[2021-11-01] MEDS: DILTIAZEM CD 120 MG CAPSULE PO SCH ×3 (10:35→21:14)
[2021-11-01] MEDS: QUEtiapine 100 MG TABLET PO SCH (21:14)
[2021-11-01] MEDS: ATORVASTATIN 40 MG TABLET PO SCH (21:15)
[2021-11-01] MEDS: LEVOFLOXACIN INJ 750 MG/150 ML PREMIX IV SCH (21:16)
[2021-11-02 04:39] LABS: Calcium 8.9 MG/DL (8.5-10.1); Osmolality,Calculated 280.5 MOS/KG (273-304); Potassium 5.7 MMOL/L (3.5-5.1)
[2021-11-02 06:05] LABS: Basophils % 0.1 % (0.0-0.8); Hemoglobin 7.4 GM/DL (12.0-16.0); Immature Granulocytes % 1.1 %; Lymphocytes # 0.5 10*3/uL (1.4-4.0); Lymphocytes % 5.2 % (21.3-54.2); Mean Corpuscular HGB Conc 25.8 GM/DL (32-36); Mean Corpuscular Volume 73.6 FL (87-102); Mean Platelet Volume 10.8 FL (9.6-12.0); Monocytes # 0.3 10*3/uL (0.11-0.8); Monocytes % 3.1 % (1.7-12.7); NRBC # 0.02 10*3/uL; Neutrophils % 90.5 % (38.7-73.9); Platelet Count 334 T/CUMM (130-400); Red Cell Distribution Width 21.5 % (9.3-17.3); White Blood Count 9.1 T/CUMM (4-12)
[2021-11-02 06:11] LABS: Hematocrit 28.7 VOL% (35.7-47.0)
[2021-11-02 06:13] LABS: Anisocytosis 2+; Ovalocytes Few; Platelet Estimate Normal; Tear Drop Cells Few
[2021-11-02] MEDS: DILTIAZEM CD 120 MG CAPSULE PO SCH ×2 (08:46→21:04)
[2021-11-02] MEDS: hydroCHLOROthiazide 12.5 MG CAPSULE PO SCH (08:47)
[2021-11-02] MEDS: PANTOPRAZOLE 40 MG TABLET PO SCH (08:47)
[2021-11-02] MEDS: CYCLOBENZAPRINE 10 MG TABLET PO SCH ×2 (08:47→21:05)
[2021-11-02] MEDS: AMIODARONE 200 MG TABLET PO SCH (08:47)
[2021-11-02] MEDS: FUROSEMIDE 20 MG TABLET PO SCH (08:47)
[2021-11-02] MEDS: PREGABALIN 75 MG CAPSULE PO SCH ×2 (08:47→21:03)
[2021-11-02] MEDS: carvediloL 12.5 MG TABLET PO SCH (08:47)
[2021-11-02] MEDS: SERTRALINE 25 MG TABLET PO SCH (08:48)
[2021-11-02] MEDS: methylPREDNISolone SOD SUC 40 MG/1 ML VIAL IV SCH ×2 (08:49→21:05)
[2021-11-02] MEDS ORDERED: SODIUM POLYSTYRENE SULFATE 15 GM/60 ML BOTTLE PO STA (10:51)
[2021-11-02] MEDS: NICOTINE 14 MG/24 HR PATCH TRANSDERM SCH (16:04)
[2021-11-02] MEDS: QUEtiapine 100 MG TABLET PO SCH (21:03)
[2021-11-02] MEDS: ATORVASTATIN 40 MG TABLET PO SCH (21:03)
[2021-11-02] MEDS: carvediloL 25 MG TABLET PO SCH (21:03)
[2021-11-02] MEDS: LEVOFLOXACIN INJ 750 MG/150 ML PREMIX IV SCH (21:05)
[2021-11-03 06:49] LABS: Basophils % 0.1 % (0.0-0.8); Hematocrit 29.3 VOL% (35.7-47.0); Immature Granulocytes Absolute 0.09 #; Lymphocytes # 0.4 10*3/uL (1.4-4.0); Lymphocytes % 4.1 % (21.3-54.2); Mean Corpuscular HGB Conc 25.9 GM/DL (32-36); Mean Corpuscular Volume 72.7 FL (87-102); Mean Platelet Volume 10.4 FL (9.6-12.0); Monocytes # 0.3 10*3/uL (0.11-0.8); Monocytes % 3.2 % (1.7-12.7); NRBC # 0.02 10*3/uL; Neutrophils % 91.6 % (38.7-73.9); Platelet Count 369 T/CUMM (130-400); Red Blood Count 4.03 MC/CUMM (3.8-5.5); Red Cell Distribution Width 21.6 % (9.3-17.3); White Blood Count 9.3 T/CUMM (4-12)
[2021-11-03 06:52] LABS: Hemoglobin 7.6 GM/DL (12.0-16.0)
[2021-11-03 06:55] LABS: Osmolality,Calculated 294.8 MOS/KG (273-304); Potassium 4.4 MMOL/L (3.5-5.1)
[2021-11-03 07:05] LABS: Hypochromia Slight; Lymphocytes 4 % (20-55); Microcytosis Slight; Platelet Estimate Adequate; Total Cells Counted 100
[2021-11-03] MEDS: NICOTINE 14 MG/24 HR PATCH TRANSDERM SCH (09:52)
[2021-11-03] MEDS: hydroCHLOROthiazide 12.5 MG CAPSULE PO SCH (09:52)
[2021-11-03] MEDS: CYCLOBENZAPRINE 10 MG TABLET PO SCH (09:52)
[2021-11-03] MEDS: FUROSEMIDE 20 MG TABLET PO SCH (09:52)
[2021-11-03] MEDS: carvediloL 25 MG TABLET PO SCH (09:52)
[2021-11-03] MEDS: PREGABALIN 75 MG CAPSULE PO SCH (09:52)
[2021-11-03] MEDS: PANTOPRAZOLE 40 MG TABLET PO SCH (09:53)
[2021-11-03] MEDS: SERTRALINE 25 MG TABLET PO SCH (09:53)
[2021-11-03] MEDS: methylPREDNISolone SOD SUC 40 MG/1 ML VIAL IV SCH (09:54)
[2021-11-03] MEDS ORDERED: DILTIAZEM CD 180 MG CAPSULE PO SCH (10:00)
[2021-11-03] MEDS: DILTIAZEM CD 120 MG CAPSULE PO SCH (10:12)
[2021-11-03 13:03] VITALS: BP 128/90
== END 2021-11-03 15:22 | disposition home health service (06) | DRG 291 ==
LOC: N.ED 18:02 → N.EDINP 21:11 → N.TELEN 21:38
PROVIDERS: ADMIT Family Medicine; ATTEND Family Medicine

== ENCOUNTER 2021-11-17 23:05 | Inpatient (IN) ==
[2021-11-17] MEDS ORDERED: ONDANSETRON 4 MG/2 ML VIAL IV STA (23:28)
[2021-11-17] MEDS ORDERED: ASPIRIN 325 MG TABLET PO STA (23:28)
[2021-11-17] MEDS ORDERED: FUROSEMIDE 40 MG/4 ML VIAL IV STA (23:28)
[2021-11-17] MEDS ORDERED: methylPREDNISolone SOD SUC 125 MG/2 ML VIAL IV STA (23:28)
[2021-11-17] MEDS ORDERED: ALBUTEROL NEB SOLN 5 MG/ML 20 ML/BOTTLE CONT NEB SCH (23:30)
[2021-11-17] MEDS ORDERED: ALBUTEROL 2.5 MG/3 ML NEB RESP TX ONE (23:45)
[2021-11-18 00:18] LABS: Basophils % 0.5 % (0.0-0.8); Eosinophils # 0.1 10*3/uL (0.0-0.87); Eosinophils % 1.2 % (0.00-10.9); Hemoglobin 7.5 GM/DL (12.0-16.0); Immature Granulocytes Absolute 0.15 #; Lymphocytes % 12.8 % (21.3-54.2); Mean Corpuscular HGB Conc 25.7 GM/DL (32-36); Mean Corpuscular Volume 72.1 FL (87-102); Mean Platelet Volume 10.4 FL (9.6-12.0); Monocytes # 0.6 10*3/uL (0.11-0.8); Monocytes % 7.7 % (1.7-12.7); NRBC # 0.03 10*3/uL; Neutrophils % 75.8 % (38.7-73.9); Platelet Count 259 T/CUMM (130-400); Red Blood Count 4.05 MC/CUMM (3.8-5.5); Red Cell Distribution Width 21.6 % (9.3-17.3); White Blood Count 7.5 T/CUMM (4-12)
[2021-11-18 00:21] LABS: Bilirubin,Total 0.5 MG/DL (0.20-1.00); Calcium 7.9 MG/DL (8.5-10.1); Osmolality,Calculated 288.3 MOS/KG (273-304); Potassium 4.4 MMOL/L (3.5-5.1)
[2021-11-18 00:21] LABS: Arterial Base Excess iSTAT -2 MMOL/L (-2.5-2.5); Arterial Bicarbonate iSTAT 25.6 MMOL/L (20-26); Arterial O2 Saturation iSTAT 95 % (95-100); Arterial PCO2 iSTAT 54 MM HG (35-48); Arterial PO2 iSTAT 86 MM HG (80-95); Arterial Total CO2 iSTAT 27 MMO/L (23-27)
[2021-11-18 00:22] LABS: Hematocrit 29.2 VOL% (35.7-47.0)
[2021-11-18 00:33] LABS: Bacteria,Urine Many /HPF (Few); Bilirubin,Urine Negative (Negative); Blood, Urine Negative (Negative); Glucose,Urine (UA) Negative (Negative); Hyaline Casts,Urine 12 /LPF (0-3); Ketones,Urine Trace mg/dL (Negative); Mucus,Urine Occasional /LPF (Occasional); Nitrite,Urine Positive (Negative); Protein,Urine 30 mg/dL (Negative); Urine Appearance Clear (Clear); Urine Color Yellow (Yellow); Urine Specific Gravity 1.025 (1.001-1.035)
[2021-11-18 00:38] LABS: INR 1.1; PT Patient Result 11.9 SECS (10.1-12.1); Partial Thromboplastin Time 25.9 SECS (23.7-32.9)
[2021-11-18 00:40] LABS: INR 1.1; PT Patient Result 11.8 SECS (10.1-12.1)
[2021-11-18] MEDS ORDERED: cefTRIAXone 1,000 MG in SODIUM CHLORIDE 0.9% 100 ML IV STA (01:00)
[2021-11-18] MEDS ORDERED: PHENAZOPYRIDINE 95 MG TABLET PO STA (03:53)
[2021-11-18] MEDS ORDERED: MORPHINE 2 MG/1 ML SYRINGE IV PRN (06:59)
[2021-11-18] MEDS ORDERED: DEXTROSE 10% 250 ML BAG IV PRN (06:59)
[2021-11-18] MEDS: ALBUTEROL/IPRATROPIUM 3 ML NEB RESP TX SCH ×5 (06:59→19:35)
[2021-11-18] MEDS ORDERED: ONDANSETRON 4 MG/2 ML VIAL IV PRN (06:59)
[2021-11-18] MEDS ORDERED: ALBUTEROL 2.5 MG/3 ML NEB RESP TX PRN (06:59)
[2021-11-18] MEDS ORDERED: ACETAMINOPHEN 325 MG TABLET PO PRN (06:59)
[2021-11-18] MEDS ORDERED: methylPREDNISolone SOD SUC INJ 1,000 MG in SODIUM CHLORIDE 0.9% 100 ML IV SCH (06:59)
[2021-11-18] MEDS ORDERED: GLUCAGON 1 MG VIAL IM PRN (06:59)
[2021-11-18] MEDS: INSULIN REGULAR 100 UNIT/ML SUBCUT SCH ×4 (07:00→21:09)
[2021-11-18] MEDS: SODIUM CHLORIDE 0.9% 1,000 ML IV SCH (07:59)
[2021-11-18] MEDS: FUROSEMIDE 40 MG/4 ML VIAL IV SCH ×2 (08:19→16:25)
[2021-11-18] MEDS: carvediloL 25 MG TABLET PO SCH ×2 (08:19→16:38)
[2021-11-18] MEDS: PIPERACILLIN/TAZOBACTAM 3,375 MG in SODIUM CHLORIDE 0.9% 100 ML IV SCH ×2 (08:20→16:37)
[2021-11-18] MEDS: methylPREDNISolone SOD SUC 40 MG/1 ML VIAL IV SCH ×2 (08:20→16:26)
[2021-11-18] MEDS ORDERED: AMIODARONE 200 MG TABLET PO SCH (09:00)
[2021-11-18] MEDS ORDERED: FUROSEMIDE 20 MG TABLET PO SCH (09:00)
[2021-11-18] MEDS ORDERED: PANTOPRAZOLE 40 MG TABLET PO SCH (09:00)
[2021-11-18] MEDS ORDERED: NON-FORMULARY MEDICATION (Omeprazole 20 mg Capsule,Delayed Release(Dr/Ec)) PO SCH (09:00)
[2021-11-18] MEDS: NICOTINE 14 MG/24 HR PATCH TRANSDERM SCH (09:30)
[2021-11-18] MEDS: DILTIAZEM CD 180 MG CAPSULE PO SCH ×2 (09:30→20:51)
[2021-11-18] MEDS: CYCLOBENZAPRINE 10 MG TABLET PO SCH ×2 (09:30→20:52)
[2021-11-18] MEDS: CLOPIDOGREL 75 MG TABLET PO SCH (09:30)
[2021-11-18] MEDS: ENOXAPARIN 40 MG/0.4 ML SYRINGE SUBCUT SCH (09:30)
[2021-11-18] MEDS: SERTRALINE 25 MG TABLET PO SCH (09:30)
[2021-11-18] MEDS: hydroCHLOROthiazide 25 MG TABLET PO SCH (09:30)
[2021-11-18] MEDS: DOCUSATE SODIUM 100 MG CAPSULE PO SCH ×2 (09:30→20:52)
[2021-11-18] MEDS: PANTOPRAZOLE 40 MG TABLET PO SCH (09:30)
[2021-11-18] MEDS: PREGABALIN 50 MG CAPSULE PO SCH ×2 (09:46→20:52)
[2021-11-18 14:00] LABS: % Iron Saturation 2.6 % (18-50)
[2021-11-18] MEDS ORDERED: QUEtiapine 100 MG TABLET PO SCH (21:00)
[2021-11-19] MEDS: methylPREDNISolone SOD SUC 40 MG/1 ML VIAL IV SCH ×2 (00:11→12:15)
[2021-11-19] MEDS: ALBUTEROL/IPRATROPIUM 3 ML NEB RESP TX SCH ×5 (00:21→14:34)
[2021-11-19] MEDS: PIPERACILLIN/TAZOBACTAM 3,375 MG in SODIUM CHLORIDE 0.9% 100 ML IV SCH ×2 (01:27→10:15)
[2021-11-19 05:38] LABS: Albumin 2.9 G/DL (3.4-5.0); Bilirubin,Total 0.4 MG/DL (0.20-1.00); Calcium 8.4 MG/DL (8.5-10.1); Osmolality,Calculated 290.3 MOS/KG (273-304); Potassium 4.2 MMOL/L (3.5-5.1); Risk Ratio 3.92; Total Protein 6.5 G/DL (6.4-8.2); VLDL Cholesterol 13.8 MG/DL
[2021-11-19 05:44] LABS: Hemoglobin 7.4 GM/DL (12.0-16.0); Immature Granulocytes Absolute 0.08 #; Lymphocytes # 0.5 10*3/uL (1.4-4.0); Lymphocytes % 5.5 % (21.3-54.2); Mean Corpuscular HGB Conc 25.8 GM/DL (32-36); Mean Corpuscular Volume 72.3 FL (87-102); Mean Platelet Volume 10.5 FL (9.6-12.0); Monocytes # 0.3 10*3/uL (0.11-0.8); NRBC # 0.05 10*3/uL; Neutrophils % 89.5 % (38.7-73.9); Platelet Count 197 T/CUMM (130-400); Red Blood Count 3.97 MC/CUMM (3.8-5.5); Red Cell Distribution Width 21.5 % (9.3-17.3); White Blood Count 8.4 T/CUMM (4-12)
[2021-11-19 05:47] LABS: Hematocrit 28.7 VOL% (35.7-47.0)
[2021-11-19] MEDS: INSULIN REGULAR 100 UNIT/ML SUBCUT SCH (08:43)
[2021-11-19] MEDS: SODIUM CHLORIDE 0.9% 1,000 ML IV SCH (08:45)
[2021-11-19] MEDS ORDERED: ATORVASTATIN 40 MG TABLET PO SCH (09:00)
[2021-11-19] MEDS ORDERED: ASPIRIN EC 81 MG TABLET PO SCH (09:00)
[2021-11-19] MEDS: carvediloL 25 MG TABLET PO SCH (10:11)
[2021-11-19] MEDS: PANTOPRAZOLE 40 MG TABLET PO SCH (10:11)
[2021-11-19] MEDS: hydroCHLOROthiazide 25 MG TABLET PO SCH (10:11)
[2021-11-19] MEDS: DILTIAZEM CD 180 MG CAPSULE PO SCH (10:12)
[2021-11-19] MEDS: PREGABALIN 50 MG CAPSULE PO SCH (10:12)
[2021-11-19] MEDS: DOCUSATE SODIUM 100 MG CAPSULE PO SCH (10:13)
[2021-11-19] MEDS: SERTRALINE 25 MG TABLET PO SCH (10:13)
[2021-11-19] MEDS: CYCLOBENZAPRINE 10 MG TABLET PO SCH (10:13)
[2021-11-19] MEDS: ENOXAPARIN 40 MG/0.4 ML SYRINGE SUBCUT SCH (10:14)
[2021-11-19] MEDS: CLOPIDOGREL 75 MG TABLET PO SCH (10:16)
[2021-11-19] MEDS ORDERED: FERROUS SULFATE 325 MG TABLET PO SCH (11:00)
[2021-11-19] MEDS: NICOTINE 14 MG/24 HR PATCH TRANSDERM SCH (11:30)
[2021-11-19] MEDS: FUROSEMIDE 40 MG/4 ML VIAL IV SCH (12:11)
[2021-11-19 14:16] VITALS: BP 118/64
== END 2021-11-19 15:25 | disposition home health service (06) | DRG 291 ==
LOC: N.ED 23:05 → N.EDINP 11-18 02:16 → N.TELES 11-18 12:54
PROVIDERS: ADMIT Family Medicine; ATTEND Family Medicine

== ENCOUNTER 2021-11-29 17:21 | Observation (INO) ==
[2021-11-29 23:00] LABS: Basophils # 0.1 10*3/uL (0.0-0.2); Basophils % 0.8 % (0.0-0.8); Eosinophils # 0.2 10*3/uL (0.0-0.87); Eosinophils % 2.3 % (0.00-10.9); Hemoglobin 7.9 GM/DL (12.0-16.0); Immature Granulocytes % 1.1 %; Immature Granulocytes Absolute 0.07 #; Lymphocytes # 1.4 10*3/uL (1.4-4.0); Lymphocytes % 21.5 % (21.3-54.2); Mean Corpuscular HGB Conc 25.3 GM/DL (32-36); Mean Corpuscular Volume 73.1 FL (87-102); Monocytes # 0.5 10*3/uL (0.11-0.8); Monocytes % 7.9 % (1.7-12.7); Neutrophils % 66.4 % (38.7-73.9); Platelet Count 201 T/CUMM (130-400); Red Blood Count 4.27 MC/CUMM (3.8-5.5); Red Cell Distribution Width 22.6 % (9.3-17.3); White Blood Count 6.6 T/CUMM (4-12)
[2021-11-29 23:01] LABS: Hematocrit 31.2 VOL% (35.7-47.0)
[2021-11-29 23:16] LABS: PT Patient Result 11.4 SECS (10.1-12.1); Partial Thromboplastin Time 25.7 SECS (23.7-32.9)
[2021-11-29 23:21] LABS: Albumin 3.2 G/DL (3.4-5.0); Bilirubin,Total 0.5 MG/DL (0.20-1.00); Calcium 7.9 MG/DL (8.5-10.1); Osmolality,Calculated 298.4 MOS/KG (273-304); Potassium 3.9 MMOL/L (3.5-5.1); Total Protein 6.1 G/DL (6.4-8.2)
[2021-11-29] MEDS ORDERED: ACETAMINOPHEN 325 MG TABLET PO PRN (23:56)
[2021-11-29] MEDS ORDERED: ONDANSETRON 4 MG/2 ML VIAL IV PRN (23:56)
[2021-11-30] MEDS ORDERED: INFLUENZA VIRUS VACCINE 0.5 ML SYRINGE IM ONE (04:45)
[2021-11-30] MEDS ORDERED: MAGNESIUM SULF RIDER 2 GM/50 ML PREMIX IV PRN (08:04)
[2021-11-30] MEDS ORDERED: GLUCAGON 1 MG VIAL IM PRN (08:04)
[2021-11-30] MEDS ORDERED: MAGNESIUM SULF RIDER 4 GM/100 ML PREMIX IV PRN (08:04)
[2021-11-30] MEDS ORDERED: POTASSIUM CHLORIDE 20 MEQ TABLET PO PRN (08:04)
[2021-11-30] MEDS ORDERED: POTASSIUM CHLORIDE RIDER 10 MEQ/100 ML PREMIX IV PRN (08:04)
[2021-11-30] MEDS ORDERED: DEXTROSE 10% 250 ML BAG IV PRN (08:04)
[2021-11-30] MEDS: FUROSEMIDE 40 MG/4 ML VIAL IV SCH ×2 (08:25→17:03)
[2021-11-30] MEDS: ATORVASTATIN 40 MG TABLET PO SCH (08:26)
[2021-11-30] MEDS: CYCLOBENZAPRINE 10 MG TABLET PO SCH ×2 (08:26→21:20)
[2021-11-30] MEDS: ASPIRIN EC 81 MG TABLET PO SCH (08:26)
[2021-11-30] MEDS: NICOTINE 14 MG/24 HR PATCH TRANSDERM SCH (08:26)
[2021-11-30] MEDS: DOCUSATE SODIUM 100 MG CAPSULE PO SCH ×2 (08:26→21:20)
[2021-11-30] MEDS: CLOPIDOGREL 75 MG TABLET PO SCH (08:26)
[2021-11-30] MEDS: DILTIAZEM CD 180 MG CAPSULE PO SCH ×2 (08:27→21:20)
[2021-11-30] MEDS: hydroCHLOROthiazide 12.5 MG CAPSULE PO SCH (08:27)
[2021-11-30] MEDS: carvediloL 25 MG TABLET PO SCH ×2 (08:27→17:05)
[2021-11-30] MEDS: PANTOPRAZOLE 40 MG TABLET PO SCH (08:27)
[2021-11-30] MEDS: SERTRALINE 25 MG TABLET PO SCH (08:27)
[2021-11-30 09:07] LABS: Osmolality,Calculated 287.1 MOS/KG (273-304); Potassium 4.3 MMOL/L (3.5-5.1)
[2021-11-30 10:21] LABS: Immature Granulocytes % 0.8 %; Immature Granulocytes Absolute 0.06 #; NRBC # 0.02 10*3/uL; Red Cell Distribution Width 22.5 % (9.3-17.3)
[2021-11-30 10:40] LABS: Basophils % 0.5 % (0.0-0.8); Eosinophils # 0.2 10*3/uL (0.0-0.87); Eosinophils % 2.1 % (0.00-10.9); Hematocrit 31.2 VOL% (35.7-47.0); Lymphocytes # 1.2 10*3/uL (1.4-4.0); Lymphocytes % 15.3 % (21.3-54.2); Mean Corpuscular Volume 72.7 FL (87-102); Monocytes # 0.7 10*3/uL (0.11-0.8); Monocytes % 8.8 % (1.7-12.7); Neutrophils % 72.5 % (38.7-73.9); Platelet Count 154 T/CUMM (130-400); Red Blood Count 4.29 MC/CUMM (3.8-5.5); White Blood Count 7.5 T/CUMM (4-12)
[2021-11-30 10:41] LABS: Hemoglobin 7.8 GM/DL (12.0-16.0)
[2021-11-30 11:27] LABS: Anisocytosis 1+; Ovalocytes Few
[2021-11-30 11:28] LABS: Polychromasia Slight
[2021-11-30] MEDS: INSULIN LISPRO 100 UNIT/ML SUBCUT SCH ×3 (12:35→23:05)
[2021-11-30] MEDS ORDERED: QUEtiapine 100 MG TABLET PO SCH (21:00)
[2021-11-30] MEDS: FERROUS SULFATE 325 MG TABLET PO SCH (21:20)
[2021-12-01 04:07] LABS: Basophils % 0.7 % (0.0-0.8); Eosinophils # 0.1 10*3/uL (0.0-0.87); Eosinophils % 2.5 % (0.00-10.9); Hemoglobin 7.2 GM/DL (12.0-16.0); Immature Granulocytes % 0.5 %; Immature Granulocytes Absolute 0.03 #; Lymphocytes # 1.4 10*3/uL (1.4-4.0); Lymphocytes % 25.4 % (21.3-54.2); Mean Corpuscular HGB Conc 25.4 GM/DL (32-36); Monocytes # 0.5 10*3/uL (0.11-0.8); Monocytes % 8.8 % (1.7-12.7); NRBC # 0.03 10*3/uL; Neutrophils % 62.1 % (38.7-73.9); Platelet Count 186 T/CUMM (130-400); Red Blood Count 3.93 MC/CUMM (3.8-5.5); Red Cell Distribution Width 22.4 % (9.3-17.3); White Blood Count 5.6 T/CUMM (4-12)
[2021-12-01 04:08] LABS: Albumin 2.8 G/DL (3.4-5.0); Bilirubin,Direct 0.2 MG/DL (0.0-0.20); Bilirubin,Indirect 0.3 MG/DL (0.0-1.0); Bilirubin,Total 0.5 MG/DL (0.20-1.00); Calcium 8.2 MG/DL (8.5-10.1); Osmolality,Calculated 290.7 MOS/KG (273-304); Potassium 3.9 MMOL/L (3.5-5.1); Total Protein 5.6 G/DL (6.4-8.2)
[2021-12-01 04:09] LABS: Hematocrit 28.3 VOL% (35.7-47.0)
[2021-12-01 04:23] LABS: Hypochromia 1+; Microcytosis 2+; Ovalocytes Few
[2021-12-01 04:24] LABS: Platelet Estimate Adequate; Polychromasia Slight
[2021-12-01] MEDS ORDERED: SODIUM CHLORIDE 0.9% 1,000 ML IV PRN (08:04)
[2021-12-01] MEDS: SERTRALINE 25 MG TABLET PO SCH (09:01)
[2021-12-01] MEDS: hydroCHLOROthiazide 12.5 MG CAPSULE PO SCH (09:01)
[2021-12-01] MEDS: ATORVASTATIN 40 MG TABLET PO SCH (09:01)
[2021-12-01] MEDS: DOCUSATE SODIUM 100 MG CAPSULE PO SCH (09:01)
[2021-12-01] MEDS: FUROSEMIDE 40 MG/4 ML VIAL IV SCH (09:01)
[2021-12-01] MEDS: NICOTINE 14 MG/24 HR PATCH TRANSDERM SCH (09:01)
[2021-12-01] MEDS: carvediloL 25 MG TABLET PO SCH (09:02)
[2021-12-01] MEDS: CLOPIDOGREL 75 MG TABLET PO SCH (09:02)
[2021-12-01] MEDS: ASPIRIN EC 81 MG TABLET PO SCH (09:02)
[2021-12-01] MEDS: PANTOPRAZOLE 40 MG TABLET PO SCH (09:02)
[2021-12-01] MEDS: FERROUS SULFATE 325 MG TABLET PO SCH (09:02)
[2021-12-01] MEDS: DILTIAZEM CD 180 MG CAPSULE PO SCH (09:02)
[2021-12-01] MEDS: CYCLOBENZAPRINE 10 MG TABLET PO SCH (09:12)
[2021-12-01] MEDS: INSULIN LISPRO 100 UNIT/ML SUBCUT SCH ×2 (09:12→13:14)
[2021-12-01 11:21] VITALS: BP 93/59
== END 2021-12-01 15:05 | disposition home or self-care (01) ==
LOC: N.ED 17:21 → N.3E 17:21
PROVIDERS: ADMIT Family Medicine; ATTEND Family Medicine

== ENCOUNTER 2021-12-27 11:10 | Observation (INO) ==
[2021-12-27] MEDS ORDERED: INFLUENZA VIRUS VACCINE 0.5 ML SYRINGE IM ONE (12:19)
[2021-12-27] MEDS ORDERED: ACETAMINOPHEN 325 MG TABLET PO PRN (12:49)
[2021-12-27] MEDS ORDERED: ONDANSETRON 4 MG/2 ML VIAL IV PRN (12:49)
[2021-12-27] MEDS ORDERED: MAGNESIUM SULF RIDER 2 GM/50 ML PREMIX IV PRN (12:49)
[2021-12-27] MEDS ORDERED: MAGNESIUM SULF RIDER 4 GM/100 ML PREMIX IV PRN (12:49)
[2021-12-27] MEDS ORDERED: POTASSIUM CHLORIDE RIDER 10 MEQ/100 ML PREMIX IV PRN (12:49)
[2021-12-27] MEDS ORDERED: DILTIAZEM CD 180 MG CAPSULE PO SCH (13:00)
[2021-12-27] MEDS ORDERED: FUROSEMIDE 40 MG TABLET PO SCH (13:00)
[2021-12-27] MEDS ORDERED: hydroCHLOROthiazide 12.5 MG CAPSULE PO SCH (14:00)
[2021-12-27 14:15] LABS: Hypochromia 2+; Microcytosis 2+
[2021-12-27 14:16] LABS: Elliptocytes Moderate
[2021-12-27 14:17] LABS: Platelet Estimate Adequate; Stomatocytes Slight; Tear Drop Cells Slight
[2021-12-27] MEDS ORDERED: METOPROLOL TARTRATE 5 MG/5 ML VIAL IV ONE (14:21)
[2021-12-27 14:23] LABS: Albumin 3.1 G/DL (3.4-5.0); Bilirubin,Total 0.9 MG/DL (0.20-1.00); Calcium 8.5 MG/DL (8.5-10.1); Osmolality,Calculated 291.6 MOS/KG (273-304); Potassium 3.3 MMOL/L (3.5-5.1)
[2021-12-27 14:26] LABS: Basophils # 0.1 10*3/uL (0.0-0.2); Basophils % 1.9 % (0.0-0.8); Eosinophils # 0.1 10*3/uL (0.0-0.87); Eosinophils % 1.2 % (0.00-10.9); Hematocrit 32.8 VOL% (35.7-47.0); Hemoglobin 8.3 GM/DL (12.0-16.0); Immature Granulocytes % 0.5 %; Immature Granulocytes Absolute 0.03 #; Lymphocytes # 1.4 10*3/uL (1.4-4.0); Lymphocytes % 23.4 % (21.3-54.2); Mean Corpuscular HGB Conc 25.3 GM/DL (32-36); Mean Corpuscular Volume 74.4 FL (87-102); Mean Platelet Volume 11.4 FL (9.6-12.0); Monocytes # 0.6 10*3/uL (0.11-0.8); Monocytes % 10.5 % (1.7-12.7); Neutrophils % 62.5 % (38.7-73.9); Platelet Count 266 T/CUMM (130-400); Red Blood Count 4.41 MC/CUMM (3.8-5.5); Red Cell Distribution Width 24.4 % (9.3-17.3); White Blood Count 5.9 T/CUMM (4-12)
[2021-12-27] MEDS: CLOPIDOGREL 75 MG TABLET PO SCH (14:41)
[2021-12-27] MEDS: carvediloL 25 MG TABLET PO SCH ×2 (14:42→20:41)
[2021-12-27] MEDS: NICOTINE 14 MG/24 HR PATCH TRANSDERM SCH (14:47)
[2021-12-27] MEDS ORDERED: GLUCAGON 1 MG VIAL IM PRN (15:09)
[2021-12-27] MEDS ORDERED: DEXTROSE 10% 250 ML BAG IV PRN (15:09)
[2021-12-27 15:30] LABS: Bacteria,Urine Many /HPF (Few); Bilirubin,Urine Negative (Negative); Blood, Urine Negative (Negative); Glucose,Urine (UA) Negative (Negative); Ketones,Urine Negative (Negative); Nitrite,Urine Positive (Negative); Protein,Urine 30 mg/dL (Negative); RBC,Urine 9 /HPF (0-4); Squamous Epithelial Cell,Urine Occasional /HPF (0-10); Urine Appearance Slightly Hazy (Clear); Urine Color Yellow (Yellow); Urine Specific Gravity 1.018 (1.001-1.035)
[2021-12-27] MEDS ORDERED: DILTIAZEM 30 MG TABLET PO PRN (16:47)
[2021-12-27] MEDS ORDERED: POTASSIUM CHLORIDE 20 MEQ TABLET PO ONE (17:00)
[2021-12-27] MEDS: INSULIN LISPRO 100 UNIT/ML SUBCUT SCH ×2 (17:21→20:42)
[2021-12-27] MEDS: cefTRIAXone 1,000 MG in SODIUM CHLORIDE 0.9% 100 ML IV SCH (17:51)
[2021-12-27] MEDS: DILTIAZEM CD 240 MG CAPSULE PO SCH (20:40)
[2021-12-27] MEDS: DOCUSATE SODIUM 100 MG CAPSULE PO SCH (20:41)
[2021-12-27] MEDS: CYCLOBENZAPRINE 10 MG TABLET PO SCH (20:41)
[2021-12-27] MEDS: FERROUS SULFATE 325 MG TABLET PO SCH (20:41)
[2021-12-27] MEDS: QUEtiapine 100 MG TABLET PO SCH (20:42)
[2021-12-27] MEDS: SPIRONOLACTONE 25 MG TABLET PO SCH (20:42)
[2021-12-28 05:40] LABS: Albumin 3.2 G/DL (3.4-5.0); Bilirubin,Total 0.7 MG/DL (0.20-1.00); Calcium 8.8 MG/DL (8.5-10.1); Osmolality,Calculated 288.8 MOS/KG (273-304); Potassium 3.6 MMOL/L (3.5-5.1); Total Protein 6.6 G/DL (6.4-8.2)
[2021-12-28 05:50] LABS: Basophils # 0.1 10*3/uL (0.0-0.2); Basophils % 1.8 % (0.0-0.8); Eosinophils # 0.1 10*3/uL (0.0-0.87); Eosinophils % 1.8 % (0.00-10.9); Hematocrit 34.1 VOL% (35.7-47.0); Hemoglobin 8.6 GM/DL (12.0-16.0); Immature Granulocytes % 0.2 %; Immature Granulocytes Absolute 0.01 #; Lymphocytes # 1.4 10*3/uL (1.4-4.0); Lymphocytes % 28.6 % (21.3-54.2); Mean Corpuscular HGB Conc 25.2 GM/DL (32-36); Mean Corpuscular Volume 75.3 FL (87-102); Mean Platelet Volume 11.3 FL (9.6-12.0); Monocytes # 0.5 10*3/uL (0.11-0.8); Monocytes % 10.5 % (1.7-12.7); Neutrophils % 57.1 % (38.7-73.9); Platelet Count 267 T/CUMM (130-400); Red Blood Count 4.53 MC/CUMM (3.8-5.5); Red Cell Distribution Width 24.7 % (9.3-17.3)
[2021-12-28] MEDS: PANTOPRAZOLE 40 MG TABLET PO SCH (06:03)
[2021-12-28 06:15] LABS: Hypochromia 2+; Microcytosis 2+; Ovalocytes Few; Polychromasia Slight
[2021-12-28 06:16] LABS: Target Cells Slight
[2021-12-28 06:17] LABS: Platelet Estimate Normal
[2021-12-28] MEDS: INSULIN LISPRO 100 UNIT/ML SUBCUT SCH ×4 (08:19→21:32)
[2021-12-28] MEDS: carvediloL 25 MG TABLET PO SCH (08:19)
[2021-12-28] MEDS: CYCLOBENZAPRINE 10 MG TABLET PO SCH ×2 (08:19→21:31)
[2021-12-28] MEDS: SERTRALINE 25 MG TABLET PO SCH (08:24)
[2021-12-28] MEDS: ATORVASTATIN 40 MG TABLET PO SCH (08:24)
[2021-12-28] MEDS: FERROUS SULFATE 325 MG TABLET PO SCH ×2 (08:24→21:31)
[2021-12-28] MEDS: CLOPIDOGREL 75 MG TABLET PO SCH (08:25)
[2021-12-28] MEDS: DOCUSATE SODIUM 100 MG CAPSULE PO SCH ×2 (08:25→21:32)
[2021-12-28] MEDS: SPIRONOLACTONE 25 MG TABLET PO SCH ×2 (08:25→21:31)
[2021-12-28] MEDS: ASPIRIN EC 81 MG TABLET PO SCH (08:25)
[2021-12-28] MEDS: DILTIAZEM CD 240 MG CAPSULE PO SCH ×2 (08:25→21:30)
[2021-12-28] MEDS: NICOTINE 14 MG/24 HR PATCH TRANSDERM SCH (08:26)
[2021-12-28] MEDS: ENOXAPARIN 40 MG/0.4 ML SYRINGE SUBCUT SCH (09:01)
[2021-12-28] MEDS: carvediloL 12.5 MG TABLET PO SCH ×2 (09:01→17:49)
[2021-12-28] MEDS: ASCORBIC ACID 500 MG TABLET PO SCH ×2 (12:15→21:31)
[2021-12-28] MEDS: cefTRIAXone 1,000 MG in SODIUM CHLORIDE 0.9% 100 ML IV SCH (17:50)
[2021-12-28] MEDS: QUEtiapine 100 MG TABLET PO SCH (21:32)
[2021-12-29 05:36] LABS: Basophils # 0.1 10*3/uL (0.0-0.2); Basophils % 1.8 % (0.0-0.8); Eosinophils # 0.2 10*3/uL (0.0-0.87); Eosinophils % 3.5 % (0.00-10.9); Hemoglobin 8.7 GM/DL (12.0-16.0); Immature Granulocytes % 0.2 %; Immature Granulocytes Absolute 0.01 #; Lymphocytes # 1.3 10*3/uL (1.4-4.0); Lymphocytes % 28.8 % (21.3-54.2); Mean Corpuscular HGB Conc 24.6 GM/DL (32-36); Mean Corpuscular Volume 78.1 FL (87-102); Monocytes # 0.6 10*3/uL (0.11-0.8); Monocytes % 12.4 % (1.7-12.7); Neutrophils % 53.3 % (38.7-73.9); Platelet Count 218 T/CUMM (130-400); Red Blood Count 4.52 MC/CUMM (3.8-5.5); Red Cell Distribution Width 24.5 % (9.3-17.3); White Blood Count 4.5 T/CUMM (4-12)
[2021-12-29 05:41] LABS: Bilirubin,Total 0.6 MG/DL (0.20-1.00); Calcium 8.6 MG/DL (8.5-10.1); Hematocrit 35.3 VOL% (35.7-47.0); Osmolality,Calculated 288.8 MOS/KG (273-304); Potassium 4.2 MMOL/L (3.5-5.1); Total Protein 5.9 G/DL (6.4-8.2)
[2021-12-29] MEDS: PANTOPRAZOLE 40 MG TABLET PO SCH (05:57)
[2021-12-29 05:58] LABS: Hypochromia 1+; Microcytosis 2+; Ovalocytes Few
[2021-12-29 05:59] LABS: Polychromasia Slight
[2021-12-29] MEDS: cefTRIAXone 1,000 MG in SODIUM CHLORIDE 0.9% 100 ML IV SCH (08:21)
[2021-12-29] MEDS: ASCORBIC ACID 500 MG TABLET PO SCH (08:22)
[2021-12-29] MEDS: SERTRALINE 25 MG TABLET PO SCH (08:22)
[2021-12-29] MEDS: CLOPIDOGREL 75 MG TABLET PO SCH (08:22)
[2021-12-29] MEDS: ATORVASTATIN 40 MG TABLET PO SCH (08:22)
[2021-12-29] MEDS: DILTIAZEM CD 240 MG CAPSULE PO SCH (08:22)
[2021-12-29] MEDS: ENOXAPARIN 40 MG/0.4 ML SYRINGE SUBCUT SCH (08:22)
[2021-12-29] MEDS: carvediloL 12.5 MG TABLET PO SCH (08:22)
[2021-12-29] MEDS: ASPIRIN EC 81 MG TABLET PO SCH (08:22)
[2021-12-29] MEDS: SPIRONOLACTONE 25 MG TABLET PO SCH (08:22)
[2021-12-29] MEDS: DOCUSATE SODIUM 100 MG CAPSULE PO SCH (08:22)
[2021-12-29] MEDS: FERROUS SULFATE 325 MG TABLET PO SCH (08:23)
[2021-12-29] MEDS: CYCLOBENZAPRINE 10 MG TABLET PO SCH (09:45)
[2021-12-29] MEDS: INSULIN LISPRO 100 UNIT/ML SUBCUT SCH ×3 (09:45→16:12)
[2021-12-29] MEDS: NICOTINE 14 MG/24 HR PATCH TRANSDERM SCH (09:46)
[2021-12-29 16:09] VITALS: BP 130/78
== END 2021-12-29 17:03 | disposition home health service (06) ==
LOC: N.5E 11:23 → INTOOBSV 11:23
PROVIDERS: ADMIT Family Medicine; ATTEND Family Medicine